=== PATIENT | male | born 1940 | race Caucasian/White ===

== ENCOUNTER 2017-02-13 12:44 | Emergency (ER) | payer MEDICARE, OTHER ==
--- NOTE | 2017-02-13 13:26 | ERPHSYRPT ---
- History of Present Illness Time Seen by Provider: 02/13/17 13:14 Source: patient Exam Limitations: no limitations Patient Subjective Stated Complaint: PT REPORTS BEING KICKED IN THE CHEST BY A COW CHARIS 1 HR AGO-DENIES SOB BUT REPORTS PAIN WITH DEEP BREATHING-REPORTS PAIN WITH MOVEMENT Triage Nursing Assessment: PT PINK WARM ET DRY-ABRASION WITH BLEEDING CONTROLLED NOTED TO CHEST-NO DECREPITIS NOTED-LUNGS EQUAL BILATERALLY-LAC NOTED TO LEFT WRIST WITH BLEEDING CONTROLLED TRAIN DRIVER-RESP NONLABORED NO COUGH NOTED DURING TRIAGE Physician History: The patient is a 76-year-old male with his complaining of getting kicked in the center of his chest by a calf [place] the farm. The patient was knocked down. He did not lose consciousness. He has some pain with deep breathing in the chest. This was about an hour ago. He also received a superficial laceration to his left wrist that he does not want anything done to at this time. He is unsure if his last tetanus vaccination was within 5 years. His past medical history is significant for BPH, GERD, hypertension, and lung disease. Timing/Duration: today, hour(s) (1) Severity: moderate Modifying Factors: Improves With: nothing Associated Symptoms: nausea, chest pain Allergies/Adverse Reactions: No Known Drug Allergies Allergy (Verified 02/13/17 13:08) Home Medications: Amlodipine Besylate 10 mg [Norvasc 10 MG] 10 mg PO DAILY 07/10/14 [History] Docusate Sodium 100 mg [Colace 100 MG] 100 mg PO DAILY 07/10/14 [History] Fexofenadine HCl [Mucinex Allergy] 180 mg PO DAILY 07/10/14 [History] Fluticasone Propionate [Flovent 110 Mcg MDI] 12 g IH BID 07/10/14 [History ] Loratadine 10 mg [Claritin 10 mg] 10 mg PO DAILY 07/10/14 [History] Multivitamin [Multi Vitamin Daily] 1 each PO DAILY 07/10/14 [History] Omeprazole 20 MG [Prilosec 20 mg] 20 mg PO DAILY 07/10/14 [History] Psyllium Husk/Aspartame [Metamucil Fiber Singles Packet] 3.4 gm PO DAILY [History] Simethicone [Gas-X] 125 mg PO DAILY 07/10/14 [History] Tamsulosin HCl [Flomax] 0.4 mg PO DAILY 07/10/14 [History] Hx Tetanus, Diphtheria Vaccination/Date Given: Yes Hx Influenza Vaccination/Date Given: Yes Hx Pneumococcal Vaccination/Date Given: No Immunizations Up to Date: Yes - Review of Systems Constitutional: No Fever, No Chills Eyes: No Symptoms Ears, Nose, & Throat: No Symptoms Respiratory: No Cough, No Dyspnea Cardiac: Chest Pain (traumatic) Abdominal/Gastrointestinal: Nausea Genitourinary Symptoms: No Dysuria Musculoskeletal: Injury, No Back Pain, No Neck Pain Skin: Skin Lesions, No Rash Neurological: No Dizziness, No Focal Weakness, No Sensory Changes Psychological: No Symptoms Endocrine: No Symptoms Hematologic/Lymphatic: No Symptoms Immunological/Allergic: No Symptoms All Other Systems: Reviewed and Negative - Past Medical History Pertinent Past Medical History: Yes Neurological History: No Pertinent History ENT History: Cataracts Cardiac History: Hypertension Respiratory History: Asthma Endocrine Medical History: No Pertinent History Musculoskeletal History: Osteoarthritis GI Medical History: GERD History: No Pertinent History Psycho-Social History: No Pertinent History Male Reproductive Disorders: Prostate Problems Other Medical History: spouse states "hx of hep B exposure" - Past Surgical History Past Surgical History: Yes Neuro Surgical History: No Pertinent History Cardiac: No Pertinent History Respiratory: No Pertinent History Gastrointestinal: Hernia Repair, Other Genitourinary: Other Musculoskeletal: Other Male Surgical History: No Pertinent History Other Surgical History: left knee tear,left rotator cuff tear/repair, anul fistula surgery, 2013 pat cataract surgery - Social History Smoking Status: Never smoker Exposure to second hand smoke: No Drug Use: none Patient Lives Alone: No - Nursing Vital Signs Nursing Vital Signs: Initial Vital Signs Temperature 97.9 F Temperature Source Oral Pulse Rate [Right Radial] 64 Pulse Rate 64 Respiratory Rate 20 Blood Pressure [Right Arm] 143/76 Pain Intensity 3 - Physical Exam General Appearance: moderate distress Eye Exam: PERRL/EOMI, eyes nml inspection Ears, Nose, Throat Exam: normal ENT inspection, TMs normal, pharynx normal, moist mucous membranes Neck Exam: normal inspection, non-tender, supple, full range of motion Respiratory Exam: chest tenderness (central) Cardiovascular Exam: regular rate/rhythm, normal heart sounds, normal peripheral pulses Gastrointestinal/Abdomen Exam: tenderness (epigastric) Rectal Exam: not done Back Exam: normal inspection, normal range of motion, No CVA tenderness, No vertebral tenderness Extremity Exam: normal inspection, normal range of motion, pelvis stable Neurologic Exam: alert, oriented x 3, cooperative, normal mood/affect, nml cerebellar function, nml station & gait, sensation nml, No motor deficits Skin Exam: laceration (left wrist) Lymphatic Exam: No adenopathy SpO2 Interpretation: normal SpO2: 97 Oxygen Delivery: Room Air - CT Exams Chest CT Interpretation: Negative, Tele-radiologist Report (per Dr Medrano) Ordered Tests: Active Orders 24 hr Category Date Time Status Utilization Management Manager STAT Care 02/13/17 13:38 Active EKG-ER Only STAT Care 02/13/17 13:38 Active IV Insertion STAT Care 02/13/17 13:32 Active Pulse Oximetry (ED) STAT Care 02/13/17 13:38 Active CHEST WITH CONTRAST [CT] Stat Exams 02/13/17 13:32 Taken BMP Stat Lab 02/13/17 14:16 Completed CBC W DIFF Stat Lab 02/13/17 14:16 Completed Medication Summary Discontinued Medications Generic Name Dose Route Start Last Admin Trade Name Freq PRN Reason Stop Dose Admin Diphtheria/Tetanus/Acell Pertussis 0.5 ml 02/13/17 14:25 02/13/17 14:38 Adacel Vial IM 02/13/17 14:26 0.5 ml .ONCE ONE Administration Diphtheria/Tetanus/Acell Pertussis Confirm 02/13/17 14:36 Adacel Vial Administered 02/13/17 14:37 Dose 0.5 ml IM .STK-MED ONE Morphine Sulfate 4 mg 02/13/17 13:32 02/13/17 13:45 Morphine Sulfate 4 Mg Inj IV 02/13/17 13:33 4 mg STAT ONE Administration Morphine Sulfate Confirm 02/13/17 13:40 Morphine Sulfate 4 Mg Inj Administered 02/13/17 13:41 Dose 4 mg .ROUTE .STK-MED ONE Morphine Sulfate 4 mg 02/13/17 14:38 02/13/17 14:45 Morphine Sulfate 4 Mg Inj IV 02/13/17 14:39 4 mg STAT ONE Administration Morphine Sulfate Confirm 02/13/17 14:41 Morphine Sulfate 4 Mg Inj Administered 02/13/17 14:42 Dose 4 mg .ROUTE .STK-MED ONE Morphine Sulfate 4 mg 02/13/17 15:30 02/13/17 15:35 Morphine Sulfate 4 Mg Inj IV 02/13/17 15:31 4 mg STAT ONE Administration Morphine Sulfate Confirm 02/13/17 15:33 Morphine Sulfate 4 Mg Inj Administered 02/13/17 15:34 Dose 4 mg .ROUTE .STK-MED ONE Ondansetron HCl 4 mg 02/13/17 13:32 02/13/17 13:45 Zofran 4 Mg/2 Ml Vial IV 02/13/17 13:33 4 mg STAT ONE Administration Ondansetron HCl Confirm 02/13/17 13:40 Zofran 4 Mg/2 Ml Vial Administered 02/13/17 13:41 Dose 4 mg .ROUTE .STK-MED ONE Lab/Rad Data: Laboratory Result Diagrams 02/13/17 14:16 02/13/17 14:16 Laboratory Results 02/13/17 02/13/17 Range/Units 14:16 14:16 WBC 8.7 (4.0-10.5) K/mm3 RBC 4.67 (4.1-5.6) M/mm3 Hgb 13.9 (12.5-18.0) gm/dl Hct 42.5 (42-50) % MCV 91.0 (78-100) fl MCH 29.8 (26-32) pg MCHC 32.7 (32-36) g/dl RDW 14.0 (11.5-14.0) % Plt Count 250 (150-450) K/mm3 MPV 12.0 H (6-9.5) fl Gran % 73.0 H (36.0-66.0) % Lymphocytes % 14.2 L (24.0-44.0) % Monocytes % 11.0 (0.0-12.0) % Eosinophils % 1.3 (0.00-5.0) % Basophils % 0.5 (0.0-0.4) % Basophils # 0.04 (0-0.4) Sodium 140 (136-145) mEq/L Potassium 3.9 (3.5-5.1) mEq/L Chloride 105 (98-107) mEq/L Carbon Dioxide 28.5 (21-32) mEq/L Anion Gap 10.4 (5-15) MEQ/L BUN 20 (9-20) mg/dL Creatinine 1.11 (0.55-1.30) mg/dl Estimated GFR > 60 ML/MIN Glucose 115 H (70-110) MG/DL Calcium 9.6 (8.5-10.1) mg/dL - Progress Progress: improved Counseled pt/family regarding: rad results - Departure Time of Disposition: 16:53 Departure Disposition: Home Clinical Impression: Contusion Condition: Stable Critical Care Time: No Additional Instructions: You have a chest contusion as a result of being kicked by a calf. You were given a total of 12 mg of morphine by IV in the ER. You were given a tetanus vaccination in the ER. The CT scan of your chest did not show any broken bones or any other abnormality area take Tatum one to 2 tablets every 4-6 hours as needed for pain. Follow-up as needed. Prescriptions: Hydrocodone Bit/Acetaminophen [Tatum 5-325 Tablet] 1 each PO Q4-6HPRN PRN #10 tablet PRN Reason: Pain
[2017-02-13] MEDS ORDERED: MORPHINE SULFATE 4 MG INJ IV ONE ×3 (13:32→15:30)
[2017-02-13] MEDS ORDERED: Zofran 4 MG/2 ML VIAL IV ONE (13:32)
[2017-02-13] MEDS ORDERED: Zofran 4 MG/2 ML VIAL ONE (13:40)
[2017-02-13] MEDS ORDERED: MORPHINE SULFATE 4 MG INJ ONE ×3 (13:40→15:33)
[2017-02-13 14:19] LABS: BASOPHIL % 0.5 % (0.0-0.4); Eosinophil % 1.3 % (0.00-5.0); Lymphocytes % 14.2 % (24.0-44.0); Mean Corpuscular Hemoglobin 29.8 pg (26-32); Platelet Count 250 K/mm3 (150-450); Red Blood Count 4.67 M/mm3 (4.1-5.6); White Blood Count 8.7 K/mm3 (4.0-10.5)
[2017-02-13] MEDS ORDERED: Adacel Vial IM ONE ×2 (14:25→14:36)
[2017-02-13 14:54] LABS: ANION GAP 10.4 MEQ/L (5-15); BLOOD UREA NITROGEN 20 mg/dL (9-20); CHLORIDE 105 mEq/L (98-107); Carbon Dioxide 28.5 mEq/L (21-32); Glucose 115 MG/DL (70-110); Potassium 3.9 mEq/L (3.5-5.1); SODIUM 140 mEq/L (136-145)
[2017-02-13 16:55] VITALS: BP 140/72; PULSE 62; O2SAT 97
--- NOTE | 2017-02-13 21:24 | XRAY ---
Indication: Anterior chest pain following kicking injury with a cow. Multiple contiguous axial images obtained through the chest using 80 cc Isovue 370 contrast. Comparison: None Lungs are inflated with mild bilateral dependent atelectasis. Inferior lingula fibrosis/scarring. Right lower lobe calcified granuloma. No suspicious pulmonary mass, infiltrate, consolidation, or effusion. Heart is not enlarged. No pericardial effusion. Aorta is minimally arteriosclerotic without aneurysm/dissection. Right hilar junky calcified nodes and smaller mediastinal calcified nodes. Bony thorax intact with mild degenerative changes throughout the spine. Left humeral head orthopedic tacks. Limited upper abdomen demonstrates calcified hepatic/splenic granulomas, left renal cysts largest measuring 1.8 cm, and cholecystectomy clips. Impression: 1. No acute cardiopulmonary abnormalities or fracture. 2. Incidental left renal cysts and evidence for old granulomatous disease. Comment: Preliminary interpretation was made by [facility]. No critical discrepancy. CTDI 14.70
== END 2017-02-13 17:00 | disposition home or self-care (01) ==
LOC: ED 12:44
DX: S20.219A Contusion of unspecified front wall of thorax, initial encounter (principal); Y93.K9 Activity, other involving animal care; W55.22XA Struck by cow, initial encounter; S61.512A Laceration without foreign body of left wrist, initial encounter; I10 Essential (primary) hypertension; R11.0 Nausea; R07.89 Other chest pain; Z79.899 Other long term (current) drug therapy
CPT/HCPCS: 36000; 36415; 71260; 80048; 85025; 90471; 90715; 93005; 93041; 96360; 96372; 96374; 96376; 99284; J2270; J2405

== ENCOUNTER 2018-05-12 09:05 | Day surgery (SDC) | payer MEDICARE, OTHER ==
[~2018-05-12 09:05] MED LIST: Lactated Ringers 1,000 ML IV ONE; Lactated Ringers 1,000 ML IV SCH
[2018-05-12] MEDS ORDERED: DEMEROL 50 MG IJ ONE (09:06)
[2018-05-12] MEDS ORDERED: VERSED 5 MG/5 ML IV ONE (09:06)
[2018-05-12 12:10] VITALS: O2SAT 93
[2018-05-12 12:24] VITALS: BP 118/70; PULSE 65
--- NOTE | 2018-05-12 14:21 | OP ---
SURGERY DATE/TIME: 05/12/2018 1040 PREOPERATIVE DIAGNOSIS: Rectal pain. POSTOPERATIVE DIAGNOSIS: Moderate diverticulosis sigmoid. PROCEDURE: Colonoscopy complete to cecum. SURGEON: Aristides López M.D. ANESTHESIA: IV sedation 15 minutes monitored. COMPLICATIONS: None. CONDITION: Stable. FINDINGS: Additional findings a fairly large firm prostate especially on the left. INDICATION: The patient has rectal pain. He had a CT scan showing enlarged prostate otherwise fairly nonspecific. DESCRIPTION OF PROCEDURE: He was taken to endoscopy. Left lateral decubitus position. IV sedation titrated. Oximeter was kept over 90% and comfort level satisfactory. The scope advanced to the cecum. Base of the cecum, ileocecal valve, appendiceal orifice were all normal. Circumferential withdrawal ascending, hepatic, transverse, splenic, descending, sigmoid, rectum, anus. Enlarged prostate especially prominent on the left gland left lobe. Scope withdrawn. Moderate diverticulosis was noted. The patient tolerated the procedure satisfactorily. Findings discussed with the in the waiting room. PSA was ordered.
== END 2018-05-12 12:45 | disposition home or self-care (01) ==
LOC: SDC 09:05
PROVIDERS: ATTEND Surgery
DX: K57.30 Diverticulosis of large intestine without perforation or abscess without bleeding (principal); K62.89 Other specified diseases of anus and rectum; N40.0 Benign prostatic hyperplasia without lower urinary tract symptoms
CPT/HCPCS: 45378; 94250; G0103; 36415; 84153; J2175; J2250

== ENCOUNTER 2022-01-01 06:26 | Day surgery (SDC) | payer MEDICARE, OTHER ==
--- NOTE | 2021-12-26 11:52 | HP ---
DATE OF SURGERY: 01/01/2022 HISTORY OF PRESENT ILLNESS: The patient presents with complaints of dysphagia, having trouble eating. He said he has history of some reflux and bloating. He has no recent EGD currently. The patient had a colonoscopy in 2018 showing some moderate sigmoid diverticulosis and was found to have a rather large prostate at that time. PAST MEDICAL HISTORY: Anxiety, gastroesophageal reflux disease, reflux, hypertension, sleep apnea. PAST SURGICAL HISTORY: Cholecystectomy. Anal fistula repair. Rotator cuff. Hernia repair. ALLERGIES: NKDA. MEDICATIONS: Moexipril/ hydrochlorothiazide, Singulair, Albuterol, loratadine, omeprazole, gabapentin, baclofen, temazepam, Tamsulosin, [place], tramadol. FAMILY HISTORY: Sister with colon cancer. Brother with lung cancer. SOCIAL HISTORY: None reported. REVIEW OF SYSTEMS: CONSTITUTIONAL: Denies fever or chills. CHEST: Denies shortness of breath. CVS: Denies chest pain. ABDOMEN: Denies abdominal pain, nausea, vomiting, diarrhea, constipation or rectal bleeding. PHYSICAL EXAMINATION: GENERAL: No acute distress. CHEST: Nonlabored. No shortness of breath. CVS: Regular rate and rhythm. ABDOMEN: Soft, nontender. IMPRESSION: Dysphagia. PLAN: EGD with possible dilatation with Dr. Aristides López. As dictated by Kimberly Ortega NP.
[~2022-01-01 06:26] MED LIST changes: -Lactated Ringers 1,000 ML IV ONE
[2022-01-01] MEDS ORDERED: Lactated Ringers 1,000 ML IV ONE (06:50)
[2022-01-01] MEDS ORDERED: DIPRIVAN 200 MG/20 ML IV ONE (08:10)
[2022-01-01] MEDS ORDERED: Xylocaine-Mpf 2% 5 Ml Vial ONE (08:10)
[2022-01-01 08:59] VITALS: BP 132/79; PULSE 69; O2SAT 96
--- NOTE | 2022-01-01 11:03 | OP ---
SURGERY DATE/TIME: 01/01/2022 08 PREOPERATIVE DIAGNOSIS: Dysphagia. POSTOPERATIVE DIAGNOSIS: Dysphagia. PROCEDURE: EGD with balloon dilatation size 21. SURGEON: Aristides López M.D. ANESTHESIA: MAC. COMPLICATIONS: None. CONDITION: Stable. INDICATION: A patient with difficulty swallowing. He has been stretched before. DESCRIPTION OF PROCEDURE: He was taken to endoscopy. Left lateral decubitus position. Pharyngoesophageal junction normal. Esophagus normal down to the gastroesophageal junction. There is a very light stricture. There was grade 3 gastroesophageal reflux disease. Fundus, body and antrum normal. Pylorus normal. Duodenal bulb normal. Second portion normal. Scope withdrawn back. A balloon dilator 18 to 21 was placed. It was pulled back into the strictured area at level 1 to level 2 and just a little over level 2. The stricture is very light. It is very clean at this time the balloon dilator was able to be pulled up and down from this location some 10 cm without difficulty. Balloon let down. Scope withdrawn. The patient tolerated the procedure satisfactorily.
== END 2022-01-01 09:07 | disposition home or self-care (01) ==
LOC: SDC 06:26
PROVIDERS: ATTEND Surgery
DX: R13.10 Dysphagia, unspecified (principal); Z80.0 Family history of malignant neoplasm of digestive organs; Z80.1 Family history of malignant neoplasm of trachea, bronchus and lung
CPT/HCPCS: 99100; C1726; J2704

== ENCOUNTER 2023-02-03 10:51 | Day surgery (SDC) | payer MEDICARE, OTHER ==
[2023-02-03] MEDS ORDERED: Depo-Medrol 40 MG/ML IM ONE (10:52)
[2023-02-03] MEDS ORDERED: LIDOCAINE HCL 1% 50 MG/5 ML VL PF IJ ONE (10:52)
[2023-02-03] MEDS ORDERED: Decadron 4 MG INJ IV ONE (10:52)
[2023-02-03] MEDS ORDERED: Sodium Chloride 0.9(Preservative Free) 10 ML IJ ONE (10:52)
[2023-02-03] MEDS ORDERED: DIPRIVAN 200 MG/20 ML IV ONE ×3 (12:23→12:38)
[2023-02-03] MEDS ORDERED: Lactated Ringers 1,000 ML IV ONE (14:17)
--- NOTE | 2023-02-03 16:13 | XRAY ---
Indication: Right L4-S1 transforaminal PIPPA. Intraoperative fluoroscopy provided 29 seconds. 6 digital spot images submitted for interpretation demonstrates posterior needle tips projecting over the expected right L4 and L5 nerve roots. Small amount of contrast injected for needle tip placement. Correlate with intraoperative findings/report.
--- NOTE | 2023-02-03 16:15 | XRAY ---
Indication: Right piriformis injection. Intraoperative fluoroscopy provided 8 seconds. Single digital spot image submitted for interpretation demonstrates posterior needle tip projecting over the right piriformis muscle. Small amount of contrast injected for needle tip placement. Correlate with intraoperative findings/report.
--- NOTE | 2023-02-03 19:40 | XRAY ---
8 seconds of fluoroscopy was used in surgery for a right piriformis injection.
--- NOTE | 2023-02-03 19:41 | XRAY ---
29 seconds of fluoroscopy was used in surgery for a right PIPPA.
== END 2023-02-03 12:34 | disposition home or self-care (01) ==
LOC: SDC-PAIN 10:51
PROVIDERS: ATTEND Psychiatry & Neurology Pain Medicine
DX: M54.16 Radiculopathy, lumbar region (principal); M79.18 Myalgia, other site; Z79.899 Other long term (current) drug therapy
CPT/HCPCS: 20552; 64483; 64484; 72100; 72170; 77002; 77003; 99100; J1030; J1100; J2001; J2704; Q9966

== ENCOUNTER 2023-08-26 09:31 | Day surgery (SDC) | payer MEDICARE, OTHER ==
--- NOTE | 2023-08-25 13:40 | HP ---
DATE OF SURGERY: 08/26/2023 HISTORY OF PRESENT ILLNESS: The patient is an 82-year-old male presents with complaints of bloating and dysphagia. It looks like the patient had dilatation in the past. He presents for EGD with dilatation currently. PAST MEDICAL HISTORY: Asthma, hypertension, chronic obstructive pulmonary disease, benign prostatic hypertrophy, allergic rhinitis, hyperlipidemia. PAST SURGICAL HISTORY: Rotator cuff. Skin lesion excision. Cataracts. Laparoscopic cholecystectomy. Hiatal hernia repair. Left knee surgery. Back surgery. Anal fistula procedure. ALLERGIES: NKDA. MEDICATIONS: Triamterene-hydrochlorothiazide, tramadol, tamsulosin, simvastatin, omeprazole, Zofran, amlodipine, ipratropium bromide, gabapentin, benazepril. FAMILY HISTORY: None reported. SOCIAL HISTORY: Negative. REVIEW OF SYSTEMS: CONSTITUTIONAL: Denies fever or chills. CHEST: Denies shortness of breath. CVS: Denies chest pain. ABDOMEN: Denies abdominal pain. PHYSICAL EXAMINATION: GENERAL: No acute distress. CHEST: Nonlabored. No shortness of breath. CVS: Regular rate and rhythm. ABDOMEN: Soft. IMPRESSION: Dysphagia. PLAN: EGD with possible dilatation with Dr. Aristides López. As dictated by Kimberly Ortega NP.
[2023-08-26] MEDS ORDERED: Lactated Ringers 1,000 ML IV SCH (10:00)
[2023-08-26] MEDS ORDERED: DIPRIVAN 200 MG/20 ML IV ONE (12:04)
[2023-08-26 12:58] VITALS: RESP 18
[2023-08-26 13:14] VITALS: BP 158/91; PULSE 72; TEMP 97.7; O2SAT 98
--- NOTE | 2023-08-26 14:01 | OP ---
SURGERY DATE/TIME: 08/26/2023 1212 PREOPERATIVE DIAGNOSIS: The patient has symptoms. He sometimes has trouble swallowing but then he also said he has a lot of air in his stomach that gets caught. It is unclear what is happening exactly. He is scheduled for an EGD. POSTOPERATIVE DIAGNOSES: 1) Grade 3 gastroesophageal reflux disease. 2) A 2 inch hiatal hernia. 3) Presbyesophagus. PROCEDURE: EGD. SURGEON: Aristides López M.D. DIETARY DIRECTOR: Noah Olvera M.D., [facility]. ANESTHESIA: General. COMPLICATIONS: None. CONDITION: Stable. DESCRIPTION OF PROCEDURE: The patient is taken to endoscopy. Left lateral decubitus position. MAC sedation provided. Pharyngoesophageal junction normal. Esophagus normal down to gastroesophageal junction. There is a 2 inch hiatal hernia. There was grade 3 gastroesophageal reflux disease with substantial irritation but there really was no absolute true stricture. There was some scarring but no true stricture. The size was about size 54. Fundus, body and antrum normal. Pylorus normal. Duodenal bulb normal. Second portion normal. Scope looped upon itself. A 2 inch hiatal hernia from below. The patient does have some presbyesophagus or just irregular contracture of esophagus. It looks like he is getting a lot of air caught in his hiatal hernia. It is about 3 inches. His esophagus is a full 54 and does not need dilated. IMPRESSION: Esophageal spasms this could possibly be helped by Bentyl a little bit. Hiatal hernia and grade 3 gastroesophageal reflux disease. PLAN: Treatment of his gastroesophageal reflux disease and possibly of his esophageal spasms.
== END 2023-08-26 13:25 | disposition home or self-care (01) ==
LOC: SDC 09:31
PROVIDERS: ATTEND Surgery
DX: K21.9 Gastro-esophageal reflux disease without esophagitis (principal); K44.9 Diaphragmatic hernia without obstruction or gangrene; R13.10 Dysphagia, unspecified; K22.89 Other specified disease of esophagus; I10 Essential (primary) hypertension
CPT/HCPCS: 93005; 99100; J2704

== ENCOUNTER 2025-02-05 06:21 | Day surgery (SDC) | payer MEDICARE, OTHER ==
[2025-02-05] MEDS ORDERED: TRANEXAMIC IV ONE (06:22)
[2025-02-05] MEDS ORDERED: [UNRECOGNIZED DRUG - OTHER] IV ONE (06:22)
[2025-02-05] MEDS: CEFAZOLIN 2 GM/100 ML NaCl 2 GM/100 ML IVPB IV SCH ×2 (06:43→15:13)
[2025-02-05] MEDS: celeBREX 100 MG PO ONE (06:43)
[2025-02-05] MEDS ORDERED: Lactated Ringers 1,000 ML IV ONE (06:43)
[2025-02-05] MEDS ORDERED: VANCOCIN INJECTION IV ONE (06:43)
[2025-02-05] MEDS: Sodium Chloride 0.9% 1000 ML 1,000 ML IV SCH (06:43)
[2025-02-05] MEDS: Decadron 4 MG PO ONE (06:44)
[2025-02-05] MEDS: TYLENOL EXTRA STRENGTH 500 MG PO ONE (06:44)
[2025-02-05 07:03] LABS: Hematocrit 39.8 % (40.1-51.0); Hemoglobin 13.2 g/dL (13.7-17.5); Mean Cell Volume 89.2 fL (79.0-92.2); Mean Corpuscular Hemoglobin 29.6 pg (25.7-32.2); Mean Corpuscular Hgb Concent. 33.2 g/dL (32.3-36.5); Mean Platelet Volume 10.9 fL (9.4-12.4); Platelet Count 265 x10^3/uL (163-337); Red Blood Count 4.46 x10^6/uL (4.63-6.08); Red Cell Distribution Width 13.1 % (11.6-14.4); White Blood Count 8.9 x10^3/uL (4.23-9.07)
[2025-02-05 07:13] LABS: Creatinine 1 1.26 mg/dL (0.66-1.25); EST GLOMERULAR FILTRATION RATE 56.2 ML/MIN
[2025-02-05] MEDS ORDERED: Propofol 1000 mg/100 ml Bottle 100 ML IV ONE ×2 (07:45→09:34)
[2025-02-05] MEDS ORDERED: TRANEXAMIC ACID IV ONE (07:45)
[2025-02-05] MEDS ORDERED: SODIUM CHLORIDE IV ONE (07:45)
[2025-02-05] MEDS ORDERED: Sodium Chloride 0.9% 100 ML ONE (07:45)
[2025-02-05] MEDS ORDERED: Naropin 0.5% 30 ML VIAL ONE (07:53)
[2025-02-05] MEDS ORDERED: Zofran 4 MG/2 ML VIAL ONE (08:19)
[2025-02-05] MEDS ORDERED: propofoL IV ONE ×2 (08:20→09:10)
[2025-02-05] MEDS ORDERED: Ketamine HCl 50 MG/ML ONE (08:32)
--- NOTE | 2025-02-05 11:05 | XRAY ---
Indication: Follow-up surgery. Comparison: December 28, 2024 AP/lateral right knee demonstrates new intact total knee arthroplasty and postoperative soft tissue swelling, soft tissue emphysema, and effusion. Stable osteopenia and mild scattered vascular calcifications. No other bony, articular, or soft tissue abnormalities.
[2025-02-05] MEDS ORDERED: ZOFRAN ODT 4 MG PO PRN (12:42)
[2025-02-05] MEDS: Hydromorphone 1 mg/ml Injection IV PRN (12:44)
[2025-02-05] MEDS: ULTRAM 50 MG PO PRN (13:28)
[2025-02-05] MEDS: NORCO 7.5/325 MG TAB PO PRN (18:27)
[2025-02-05] MEDS ORDERED: PROVENTIL 2.5 MG/3 ML NEB IH PRN (19:31)
[2025-02-05] MEDS: Protonix 40MG Tablet PO SCH (19:48)
[2025-02-05] MEDS: NEURONTIN PO SCH (19:48)
[2025-02-05] MEDS: Maxzide-25MG Tablet PO SCH (20:21)
[2025-02-05] MEDS: BENADRYL 25 MG CAPSULE PO PRN (20:21)
[2025-02-05] MEDS: Ocuvite Tablet PO SCH (20:21)
[2025-02-05] MEDS: NORVASC 5 MG PO SCH (20:21)
[2025-02-05] MEDS: Lotensin PO SCH (20:21)
[2025-02-06] MEDS: Mylicon 80MG PO PRN (00:51)
[2025-02-06 04:11] VITALS: PULSE 78
[2025-02-06 05:07] LABS: Hematocrit 37.1 % (40.1-51.0); Hemoglobin 12.2 g/dL (13.7-17.5); Mean Cell Volume 89.6 fL (79.0-92.2); Mean Corpuscular Hemoglobin 29.5 pg (25.7-32.2); Mean Corpuscular Hgb Concent. 32.9 g/dL (32.3-36.5); Platelet Count 268 x10^3/uL (163-337); Red Blood Count 4.14 x10^6/uL (4.63-6.08); Red Cell Distribution Width 13.2 % (11.6-14.4)
[2025-02-06 07:42] VITALS: BP 128/68; RESP 22; TEMP 98.9; O2SAT 90
[2025-02-06] MEDS ORDERED: Xylocaine 1% Vial 30 ML PF IJ ONE (08:03)
[2025-02-06] MEDS ORDERED: Marcaine Mpf 0.5% Vial 30 Ml ONE (08:03)
[2025-02-06] MEDS: Atrovent 0.5MG NEBULE IH SCH (08:03)
[2025-02-06] MEDS ORDERED: NORVASC 5 MG PO SCH (10:00)
[2025-02-06] MEDS ORDERED: Ocuvite Tablet PO SCH (10:00)
[2025-02-06] MEDS ORDERED: Lotensin PO SCH (10:00)
[2025-02-06] MEDS: Pepcid 20 MG PO SCH (10:09)
[2025-02-06] MEDS: Docusate Sodium 100 MG PO SCH (10:09)
[2025-02-06] MEDS: MELOXICAM PO SCH (10:09)
[2025-02-06] MEDS: Flomax 0.4 MG PO SCH (10:09)
[2025-02-06] MEDS: Zocor 10MG PO SCH (10:09)
[2025-02-06] MEDS: CLARITIN 10 MG PO SCH (10:10)
--- NOTE | 2025-02-06 11:04 | OP ---
SURGERY DATE/TIME: 02/05/2025 [id number] PREOPERATIVE DIAGNOSIS: Severe osteoarthritis, right knee. POSTOPERATIVE DIAGNOSIS: Severe osteoarthritis, right knee. PROCEDURE: Right total knee replacement arthroplasty utilizing the [employer] instrumentation size 8, femoral component press-fit with a size F tibial component cemented, a 10-mm polyethylene tibial bearing tray, and a 25 x 8 single-peg all-polyethylene patella cemented. SURGEON: Noah Torrez DO ANESTHESIA: General with block for postop pain control. DESCRIPTION OF PROCEDURE AND FINDINGS: The patient was identified, and informed consent was obtained. The patient was taken to the operative suite where he was placed into the supine position on the operating table. General anesthetic was administered. Once an appropriate level of anesthesia had been obtained, tourniquet was placed high on the right thigh. The right lower extremity was prepped and draped in the usual sterile fashion. A standard time-out was taken. Following this, the foot was placed into the boot for the Zhou. The leg was then exsanguinated, and tourniquet elevated at 350 mmHg. The standard midline incision was accomplished. Skin was incised, and dissection was carried out through the subcutaneous tissue. This was done with the knee at about a 35 to 40-degree flexion. Skin was incised. Dissection was carried out through subcutaneous tissue and utilizing a fresh #10 blade, a standard medial parapatellar incision was accomplished. Grade 1 synovial fluid was encountered entering the joint. The patient was noted to have hard eburnated bone on the retropatellar surface as well as the entire medial femoral condyle and tibial plateau. Significant skip areas of hard eburnated bone were noted on the lateral femoral condyle and tibial plateau as well. Portions of the medial and lateral menisci as well as the anterior cruciate ligament and infrapatellar fat pad were excised for visualization. Z retractors were then positioned medially and laterally, and at this point then the femoral jig was applied, and the drill holes were made. The distal femoral cutting block was then applied, and the distal femoral cut was made with the oscillating saw. The 4-in-1 cutting block was then applied, and the anterior, posterior, and chamfer cuts were made. The wafers of bone were removed, and at this point, any remaining osteophytes from the femur were then excised. Our attention was then turned to the tibial side where the PCL retractor was placed, and the knee was placed into a hyperflexed position. Any remaining portion of menisci were then excised. The tibial jig was applied, and the drill holes were accomplished. The tibial cutting block was then applied and held in position with its pins. The proximal wafer of tibia was excised, and at this point then any remaining debris was then debrided from the joint, and small osteophytes were removed from the posterior condyles of the femur. The trial tibial plate was applied and held with the appropriate pins after determining the rotation. Trial femoral component was applied, and the drill holes were made for the pegs on the permanent component. A size 10 poly was deemed to be the appropriate size as it gave excellent soft tissue balance and full extension as well as throughout the entire arc of motion to greater than 125 degrees of flexion. At this point, then the patellar button was milled after measuring the thickness of the patella. The milling device was utilized to resect a portion of the patella. The 8 x 25 patellar button was then inserted. Excellent tracking was noted. Any remaining osteophytes were removed from the patella at this point. Following this, the trial instrumentation was removed. The joint was copiously irrigated with the pulsed outsole cementer machine and dried. The cement was vacuum mixed and then pressed into the interstices of the tibia, and the tibial component was impacted into position. Any excess cement was removed during the curing process. Femoral component was then press-fit into position, and the trial tibial tray was then inserted, and the knee was held in extension during the curing process. The patella button was then cemented into position. The cement was allowed to cure. Once the cement had fully cured and all excess cement had been removed, the knee was again placed through a range of motion. Excellent tracking of the patella was noted, and it was deemed again that the 10 mm poly was indeed the appropriate size. The trial was removed, and the permanent component was inserted after the knee had been irrigated. The knee had a final irrigation and was closed with #2 Stratafix, 2-0 Monocryl, and subcuticular 3-0 Stratafix augmented with Dermabond. An Aquacel dressing was applied. The patient was then transferred to the cart and taken to the recovery room in satisfactory condition, having tolerated the procedure well.
== END 2025-02-06 10:30 | disposition home or self-care (01) ==
LOC: SDC 06:21 → MED SURG 11:50 → SDC 02-06 10:30
PROVIDERS: ATTEND Orthopaedic Surgery
DX: M17.11 Unilateral primary osteoarthritis, right knee (principal)
CPT/HCPCS: 27447; 36415; 73560; 76937; 82565; 84520; 85027; C1713; C1776; J0690; J1171; J2405; J2704; J2795; J3370; A9270-GY